=== PATIENT | female | born 1985 | race African-American/Black ===

== ENCOUNTER → 2017-04-02 | Outpatient (CLI) | payer OTHER ==
[~2017-04-02] MED LIST: ADVIL200 M1 PO; BENADRYL25 M1 PO; CLINDAMAX TD; FLONASE 0.05% N16 G1; MYRBETRIQ25 MG PO; PRENATAL DHA200 MG PO; PROBIOTIC1 EAC6 PO; TREXIMET 85-501 EACH PO; TRIDESILON60 GM TD; ZYRTEC10 M2 PO
[2017-04-02 10:37] LABS: HEMATOCRIT 40.6 % (35.0-45.0); HEMOGLOBIN 13.3 gm/dL (12.0-16.0); MEAN CORPUSCULAR HEMOGLOBIN 27.3 PG (28-34); MEAN CORPUSCULAR HGB CONC 32.8 g/dL (30-36); RED BLOOD COUNT 4.89 X10e (3.90-5.30); WHITE BLOOD COUNT 7.4 X10e3 (4.0-10.5)
[2017-04-02 11:04] LABS: CALCIUM SERUM 8.9 mg/dL (8.4-10.2); POTASSIUM 4.1 mmol/L (3.5-5.1)
== END | disposition home or self-care (01) ==
LOC: CAMB 03-26 10:00
PROVIDERS: Specialist
DX: Z01.812 Encounter for preprocedural laboratory examination (principal); K65.1 Peritoneal abscess
CPT/HCPCS: 36415; 80048; 85027